=== PATIENT | female | born 1970 | race Caucasian/White ===

== ENCOUNTER 2021-11-12 16:58 | Emergency (ER) | payer OTHER ==
[~2021-11-12] VITALS: Ht 175.3 cm; Wt 75.9 kg
[2021-11-12 17:37] VITALS: BP 127/84
--- NOTE | 2021-11-12 17:40 | NUR ---
PT SENT TO LOBBY TO WAIT
[2021-11-12] MEDS ORDERED: BACI1PAC6 TP (18:07)
[2021-11-12] MEDS ORDERED: CEPH-588 PO (18:07)
--- NOTE | 2021-11-12 18:08 | NUR ---
51 Y.O. F C/O BUG BITE L ANKLE X 2 DAYS. AREA IS RED, SWOLLEN AND HAS SOME DRIED YELLOW DISCHARGE. PT SAYS AREA IS VERY ITCHY. DENIES FEVER AND CHILLS. PT ALSO DENIES CHEST PAIN, SOB, AND N/V/D. A&OX4, SKIN INTACT, VITALS WNL, AND STEADY GAIT. NKA [facility]
--- NOTE | 2021-11-12 18:12 | NUR ---
Patient discharged with v/s stable. Written and verbal after care instructions given and explained. Patient alert, oriented and verbalized understanding of instructions. Ambulatory with steady gait. All questions addressed prior to discharge. ID band removed. Patient advised to follow up with PMD. Rx of Keflex, Bacitracin given. Patient educated on indication of medication including possible reaction and side effects. Opportunity to ask questions provided and answered.
== END 2021-11-12 18:12 | disposition home or self-care (01) ==
LOC: MED 16:58
DX: S90.562A Insect bite (nonvenomous), left ankle, initial encounter (principal); L03.116 Cellulitis of left lower limb; Z79.899 Other long term (current) drug therapy; W57.XXXA Bitten or stung by nonvenomous insect and other nonvenomous arthropods, initial encounter; Y93.89 Activity, other specified; Y92.89 Other specified places as the place of occurrence of the external cause; Y99.8 Other external cause status
CPT/HCPCS: 99283